=== PATIENT | female | born 1985 | race Caucasian/White ===

== ENCOUNTER → 2019-10-06 | Outpatient (CLI) | payer OTHER ==
[~2019-10-06] MED LIST: GADOTERATE 2.5 MMOL/5 ML VIAL ONE; LIDOCAINE-MPF 1%, 5ML ONE; ROPivacaine/PF 0.2%, 10 ML ONE
== END | disposition home or self-care (01) ==
LOC: RAD 14:29
PROVIDERS: ATTEND Orthopaedic Surgery
DX: M25.411 Effusion, right shoulder (principal); Z98.890 Other specified postprocedural states
CPT/HCPCS: 73040; 73222; A9575; J2795